=== PATIENT | male | born 1965 | race Caucasian/White ===

== ENCOUNTER → 2016-09-30 | Outpatient (CLI) | payer BC ==
--- NOTE | 2016-09-30 15:55 | CARD ---
APPROVED REPORT INDICATION Chest Pain RISK FACTORS Smoking Reason : Patient complained of pain PROCEDURE The patient underwent an exercise Stress Test using the Elbert protocol. Blood pressure, heart rate, a nd EKG were monitored. An Echocardiogram was performed by garage door technician in four stages in quad fashion. At peak stress four se lected images were obtained and placed side by side with resting images for comparison. STRESS ECHO FINDINGS The resting Echocardiogram showed normal left ventricular contractility with an estimated Ejection Fr action of about 65 %. Normal augmentation of myocardial wall segments using a 16 segment model. Test Type: Exercise Stress Nurse/Tech: Angela Rodriguez R.N. Test Indications: palpitations Medications: none Resting ECG: SR Resting Heart Rate: 86 bpm Resting Blood Pressure: 121/72mmHg Pretest Chest Pain: No chest pain Nurse/Tech Notes lungs cta, heart tone regular, good radial pulse Stress Symptoms No chest pain or symptoms. POST EXERCISE Reason for Termination: Reached target heart rate Target HR: Yes Max HR: 152 bpm 90% of Maximum Predicted HR: 169 bpm Exercise duration: 8:01 min:sec, 3 Stage Exercise capacity: 10.1METs Max Blood Pressure: 152/74mmHg Blood Pressure response to exercise: Normal blood pressure response during stress. Heart Rate response to exercise: normal Chest Pain: No. Arrhythmia: No. ST Change: Yes. Upsloping ST segment depression of 1 mm at peak stress. INTERPRETATION Stress EKG Conclusion: Negative for ischemia. STRESS ECG Stress EKG shows no significant changes. <Conclusion> Normal resting EF of 55% with normal wall motion. Normal wall motion and augmentation at peak stress. EF > 70% Negative EKG Good exercise capacity at 10 Mets.
--- NOTE | 2016-10-01 15:51 | EKG ---
[facility] [address] [place] [id number] Test Date: 2016-09-30 Test Time: 13:49:44 Pat Name: ZEINAB GODFREY Department: Room: Gender: M Printed Circuit Board Preassembler: Yarely Garcia : 1965 Requested By: SKY AGUILA Order Number: [id number] Reading MD: Interpretive Statements
== END | disposition home or self-care (01) ==
LOC: ECHO 12:34
PROVIDERS: ATTEND Internal Medicine Cardiovascular Disease
DX: R07.2 Precordial pain (principal); R00.2 Palpitations
CPT/HCPCS: 93017; 93225; 93226; 93350